=== PATIENT | male | born 1985 | race Caucasian/White ===

== ENCOUNTER 2018-12-12 15:46 | Emergency (ER) | payer BC ==
[~2018-12-12] VITALS: Ht 177.8 cm; Wt 99.8 kg
== END 2018-12-12 16:38 | disposition home or self-care (01) ==
LOC: ER 15:46
DX: S01.511D Laceration without foreign body of lip, subsequent encounter (principal); F17.200 Nicotine dependence, unspecified, uncomplicated

== ENCOUNTER 2021-02-24 04:18 | Emergency (ER) | payer BC ==
[~2021-02-24] VITALS: Ht 180.3 cm; Wt 99.8 kg
[2021-02-24 05:19] LABS: BASOPHILS ABSOLUTE AUTO 0.08 K/mm3 (0.00-0.23); BASOPHILS PERCENT AUTO 1 % (0-2); EOSINOPHILS PERCENT AUTO 3 % (0-6); Hemoglobin 16.6 g/dL (13.5-17.5); IMMATURE GRAN PERCENT AUTO 1 % (0-1); LYMPHOCYTES ABSOLUTE AUTO 1.85 K/mm3 (0.84-5.20); LYMPHOCYTES PERCENT AUTO 17 % (21-46); MONOCYTES ABSOLUTE AUTO 0.78 K/mm3 (0.16-1.47); MONOCYTES PERCENT AUTO 7 % (4-13); Mean Corpuscular HGB 30.5 pg (26.0-34.0); Mean Corpuscular HGB Conc 34.6 g/dL (31.5-36.5); Mean Corpuscular Volume 88 fL (80-100); Mean Platelet Volume 9.3 fL (9.1-12.4); NEUTROPHILS ABSOLUTE AUTO 7.92 K/mm3 (1.96-9.15); NEUTROPHILS PERCENT AUTO 72 % (41-73); Platelet Count 271 K/mm3 (150-400); RDW Coefficient Variation 12.5 % (11.7-14.2); RDW Standard Deviation 40.3 fL (35.1-46.3); Red Blood Cell Count 5.45 M/mm3 (4.30-5.90); White Blood Cell Count 11.03 K/mm3 (4.00-11.30)
[2021-02-24 05:54] LABS: Ethanol (Alcohol), Blood, Med 252 mg/dL
[2021-02-24 05:55] LABS: Alanine Aminotransfer (ALT/SGP 131 U/L (12-78); Albumin/Globulin Ratio 1.1 (0.8-1.8); Alk Phos 119 U/L (50-136); Anion Gap 9 mmol/L (6-16); Aspartate Aminotrans (AST/SGOT 57 U/L (12-37); Bilirubin, Total 0.4 mg/dL (0.1-1.0); Blood Urea Nitrogen 10 mg/dL (8-24); Bun/Creatinine Ratio 12.7 (12.0-20.0); CO2, Blood 23 mmol/L (21-32); Calcium, Blood 9.1 mg/dL (8.5-10.1); Chloride, Blood 107 mmol/L (98-108); Creatinine, Blood 0.79 mg/dL (0.60-1.20); Globulin, Blood 3.7 g/dL (2.2-4.0); Glomerular Filtration Rate >60 (60-); Glucose, Blood 105 mg/dL (70-99); Potassium, Blood 3.6 mmol/L (3.5-5.5); Sodium, Blood 139 mmol/L (136-145); Total Protein, Blood 7.7 g/dL (6.4-8.2)
[2021-02-24] MEDS ORDERED: OXYACE7.5T PO (07:30)
[2021-02-24] MEDS ORDERED: CRUTCH2 XX (07:31)
== END 2021-02-24 08:30 | disposition home or self-care (01) ==
LOC: ER 04:18
PROVIDERS: Emergency Medicine
DX: S82.851A Displaced trimalleolar fracture of right lower leg, initial encounter for closed fracture (principal); S01.511A Laceration without foreign body of lip, initial encounter; F10.129 Alcohol abuse with intoxication, unspecified; F17.200 Nicotine dependence, unspecified, uncomplicated; Y04.8XXA Assault by other bodily force, initial encounter
CPT/HCPCS: 27818; 70450; 72125; 73560-LT; 73600; 73610; 80053; 85025; 96374-59; 99284-25; G0480; J1170

== ENCOUNTER 2021-03-02 06:09 | Day surgery (SDC) | payer BC ==
[~2021-03-02] VITALS: Ht 180.3 cm; Wt 109.4 kg
[~2021-03-02 06:09] MED LIST: CRUTCH2 XX; OXYACE7.5T PO
--- NOTE | 2021-03-02 06:49 | NUR ---
History, Chart, Medications and Allergies reviewed before start of procedure. Patient confirms NPO status and agrees with scheduled surgery. Lungs clear T/O to Auscultation. Patient denies fever, coughs, sore throat, loss of sense of smell/taste, body aches, muscle pain, sneezing or any other symptoms in the last few weeks. Patient States Post-Procedure ride home has been arranged with his girlfriend.
--- NOTE | 2021-03-02 11:39 | NUR ---
JUSTIN WRAP OVER HARD SPLINT TO RLE INTACT. RLE ELEVATED ON PILLOW ABOVE HEART. ICE PACK INTACT. TOES TO RLE PINK WITH LESS THAN 3 SECOND CAP REFILL. PATIENT STATES HE CAN FEEL TOUCH TO RLE TOES. DENIES NUMBNESS/TINGLING. TOLERATING SIPS OF WATER AND EATING CRACKERS. CONTACT LENSES GIVEN TO PATIENT TO PUT IN HIS EYES.
--- NOTE | 2021-03-02 11:49 | NUR ---
PT TO BRONCH ROOM PER SAY JACINTO ARE PINK CAP REFILL WNL DRSG CDI PT IS PLEASANT VISITS WITH ME ABOUT FALLING ASLEEP FOR SURGERY REPORT TO KENNETH FRASER
--- NOTE | 2021-03-02 11:58 | NUR ---
REPORT TO DENA GOODWIN RN.
--- NOTE | 2021-03-02 12:36 | NUR ---
ALL DC INSTRUCTIONS GONE OVER, ALL QUESTIONS ANSWERED. IV REMOVED. PT MINH PO WELL.
--- NOTE | 2021-03-02 12:45 | NUR ---
PT OUT VIA WC BY BRIA JEREZ.
== END 2021-03-02 12:45 | disposition home or self-care (01) ==
LOC: ORSCSDS 06:09 → ORSCMMR 06:10 → ORSCSDS 07:30
PROVIDERS: Podiatrist Foot & Ankle Surgery
PROC: 0QSG04Z Reposition Right Tibia with Internal Fixation Device, Open Approach (ICD-10-PCS; principal; 2021-03-02 07:30)
PROC: 0QSJ04Z Reposition Right Fibula with Internal Fixation Device, Open Approach (ICD-10-PCS; principal; 2021-03-02 07:30)
DX: S82.851A Displaced trimalleolar fracture of right lower leg, initial encounter for closed fracture (principal); I10 Essential (primary) hypertension; F17.210 Nicotine dependence, cigarettes, uncomplicated
CPT/HCPCS: A9270; C1713; C1769; C1776; J0171; J0690; J1100; J1170; J1885; J2250; J2405; J2704; J3010; J7120

== ENCOUNTER 2024-12-17 08:27 | Day surgery (SDC) | payer BC ==
[~2024-12-17] VITALS: Ht 180.3 cm; Wt 100.1 kg
[2024-12-17] VITALS (9 sets, daily range): BP systolic 101–129; BP diastolic 68–86
[~2024-12-17 08:27] MED LIST changes: +Acetaminophen 500 MG Tab PO SCH; +CeFAZolin Sodium 2,000 MG in NS 100 ML IV SCH; +CeFAZolin Sodium 3,000 MG in NS 100 ML IV SCH; +IBUP200 PO; +Lactated Ringer's 1,000 ML IV SCH; +Lidocaine HCl 4% 5 ML SDA ONE; +NAPR220 PO; +propofoL 150 ML IV ONE
[2024-12-17] MEDS ORDERED: Dexamethasone Sod Phos 10 MG/ML 1ML VIAL ONE (08:50)
[2024-12-17] MEDS ORDERED: Rocuronium Bromide 10 MG/ML 5ML Injection IV ONE ×2 (08:50→10:19)
[2024-12-17] MEDS ORDERED: Ondansetron HCl 2 MG / ML 2ML Vial ONE (08:50)
[2024-12-17] MEDS ORDERED: Sugammadex Sodium 200 MG/2ML SDV (100 MG/ML) ONE (08:50)
[2024-12-17] MEDS ORDERED: HYDROmorphone HCl 0.5 MG/0.5 ML SYR ONE (08:50)
[2024-12-17] MEDS ORDERED: propofoL 40 ML IV ONE (08:50)
[2024-12-17] MEDS ORDERED: Ketorolac Tromethamine 30mg Vial ONE (08:50)
[2024-12-17] MEDS ORDERED: Metoclopramide HCl 5MG / ML 2ML Vial ONE (08:50)
[2024-12-17] MEDS ORDERED: Chantix1 MG (09:02)
[2024-12-17] MEDS ORDERED: SILD50TA (09:02)
[2024-12-17] MEDS ORDERED: 1/2 NS 250ml250 ML (09:03)
[2024-12-17] MEDS ORDERED: Bupivacaine 0.5% HCl 5 MG/ML 30MLVIAL ONE (09:11)
[2024-12-17] MEDS ORDERED: CeFAZolin Sodium 2,000 MG VIAL ONE (09:16)
--- NOTE | 2024-12-17 09:28 | NUR ---
Ambulatory in Day SurgeryPre-Op teaching done. Pt verbalizes understanding. History, Chart, Medications and Allergies reviewed before start of procedure.Patient confirms NPO status and agrees with scheduled surgery. Patient reports completing Chlorhexadine shower X2 prior to admission to hospital.Patient States Post-Procedure ride home has been arranged.
[2024-12-17] MEDS ORDERED: FentaNYL Citrate 50 MCG/ML 2 ML Injection ONE (10:10)
[2024-12-17] MEDS ORDERED: HYDROcodone 5-APAP 325 TAB PO PRN (11:40)
== END 2024-12-17 23:00 | disposition home or self-care (01) ==
LOC: ORSCMMR 08:27 → ORD 09:45 → ORSCMMR 23:00
PROVIDERS: Surgery
PROC: 0YU54JZ Supplement Right Inguinal Region with Synthetic Substitute, Percutaneous Endoscopic Approach (ICD-10-PCS; principal; 2024-12-17 09:45)
PROC: 0WQF0ZZ Repair Abdominal Wall, Open Approach (ICD-10-PCS; principal; 2024-12-17 09:45)
PROC: 8E0W4CZ Robotic Assisted Procedure of Trunk Region, Percutaneous Endoscopic Approach (ICD-10-PCS; principal; 2024-12-17 09:45)
DX: K40.90 Unilateral inguinal hernia, without obstruction or gangrene, not specified as recurrent (principal); K43.9 Ventral hernia without obstruction or gangrene; Z87.891 Personal history of nicotine dependence; Z79.899 Other long term (current) drug therapy
CPT/HCPCS: A9270; C1781; J0690; J1100; J1171; J1885; J2003; J2405; J2704; J2765; J3010; J7120